=== PATIENT | female | born 1950 | race African-American/Black ===

== ENCOUNTER 2024-04-11 08:59 | Day surgery (SDC) | payer OTHER ==
[2024-04-05 14:44] VITALS: BMI 24.3
[2024-04-11 09:51] VITALS: RESP 16
[2024-04-11] MEDS ORDERED: LACTATED RINGERS SOLUTION 1,000 ML IV SCH ×2 (10:30→13:15)
[2024-04-11] MEDS ORDERED: ERYTHROMYCIN 0.5% OPHTHALMIC OINTMENT 3.5 GM TUBE ONE (11:45)
[2024-04-11] MEDS ORDERED: TETRACAINE 0.5% OPHTH SOLN 2 ML BOTTLE ONE (11:45)
[2024-04-11] MEDS ORDERED: ceFAZolin SODIUM 1 GM VIAL ONE ×2 (11:45→13:19)
[2024-04-11] MEDS ORDERED: POVIDONE-IODINE 5% OPHTHALMIC PREP 30 ML SOLUTION ONE (11:46)
[2024-04-11] MEDS ORDERED: LIDOCAINE 1%/EPI 1:100000 (20 ML MULTI DOSE VIAL) ONE (11:46)
[2024-04-11] MEDS ORDERED: BUPIVACAINE HCL/PF 0.5% (5MG/ML) 10 ML VIAL ONE (11:46)
[2024-04-11] MEDS ORDERED: LIDOCAINE HCL/PF 2% SDV 5ML VIAL ONE ×2 (12:16→13:19)
[2024-04-11] MEDS ORDERED: PROPOFOL 20 ML ONE (12:16)
[2024-04-11] MEDS ORDERED: ePHEDrine SULFATE 50 MG/1 ML AMPULE ONE (12:44)
[2024-04-11] MEDS ORDERED: oxyCODONE HCL 5 MG TABLET PO PRN (13:12)
[2024-04-11 14:30] VITALS: PULSE 78; TEMP 97.7
[2024-04-11] MEDS ORDERED: ACETAMINOPHEN INJECTION 100 ML ONE (14:33)
[2024-04-11] MEDS: ACETAMINOPHEN 1000 MG/100 ML BAG IVPB PRN (14:35)
[2024-04-11 15:51] VITALS: BP 137/82
== END 2024-04-11 15:15 | disposition home or self-care (01) ==
LOC: FASU 08:59
PROVIDERS: ATTEND Ophthalmology
PROC: 08SP0ZZ Reposition Left Upper Eyelid, Open Approach (ICD-10-PCS; principal; 2024-04-11 13:01)
DX: H02.422 Myogenic ptosis of left eyelid (principal); H01.004 Unspecified blepharitis left upper eyelid
CPT/HCPCS: 94760; J0131